=== PATIENT | female | born 1995 | race Caucasian/White ===

== ENCOUNTER 2018-03-02 17:12 | Emergency (ER) | payer OTHER ==
[~2018-03-02] VITALS: Ht 167.6 cm; Wt 49.9 kg
[2018-03-03] MEDS ORDERED: MAALOX MAXIMUM355 ML PO (02:34)
[2018-03-03] MEDS ORDERED: KETO10TA2 PO (02:34)
[2018-03-03] MEDS ORDERED: MEDROLPACK PO (02:34)
== END 2018-03-03 03:03 | disposition home or self-care (01) ==
LOC: ER 17:12
DX: B27.80 Other infectious mononucleosis without complication (principal)

== ENCOUNTER 2019-10-16 12:15 | Outpatient (CLI) | payer OTHER ==
[~2019-10-16] VITALS: Ht 157.5 cm; Wt 49.9 kg
[~2019-10-16 12:15] MED LIST: KETO10TA2 PO; MAALOX MAXIMUM355 ML PO; MEDROLPACK PO
[2019-10-16] MEDS ORDERED: PROTONIX20 MG PO (12:42)
[2019-10-16] MEDS ORDERED: PEPCID AC20 MG PO (12:43)
== END 2019-10-16 13:06 | disposition home or self-care (01) ==
LOC: OFIC 805 12:15
PROVIDERS: ATTEND Otolaryngology Otology & Neurotology
DX: J37.0 Chronic laryngitis (principal); J02.8 Acute pharyngitis due to other specified organisms; K21.9 Gastro-esophageal reflux disease without esophagitis; R07.0 Pain in throat

== ENCOUNTER 2021-08-16 16:47 | Emergency (ER) | payer OTHER ==
[~2021-08-16] VITALS: Ht 157.5 cm; Wt 50.8 kg
[~2021-08-16 16:47] MED LIST changes: +PEPCID AC20 MG PO; +PROTONIX20 MG PO
== END 2021-08-16 21:49 | disposition home or self-care (01) ==
LOC: ER 16:47
DX: R31.9 Hematuria, unspecified (principal); Z72.0 Tobacco use